=== PATIENT | female | born 2000 | race Caucasian/White ===

== ENCOUNTER 2023-01-30 08:02 | Emergency (ER) | payer OTHER ==
[2023-01-30] MEDS ORDERED: Sodium Chloride 0.9% 2.5 ML Syringe FLUSH PRN (08:35)
[2023-01-30] MEDS ORDERED: Sodium Chloride 0.9% 10 ML Syringe FLUSH PRN (08:35)
[2023-01-30] MEDS ORDERED: Ondansetron 4 MG/2 ML SDV IVPUSH ONE (08:36)
[2023-01-30] MEDS ORDERED: Sodium Chloride 0.9% 1,000 ML IV ONE ×2 (08:36→10:47)
[2023-01-30 09:11] LABS: BASOPHILS PERCENT AUTO 0.1 % (0.0-1.5); EOSINOPHILS PERCENT AUTO 0.1 % (0.0-7.0); HEMATOCRIT 41.3 % (36.0-46.0); LYMPHOCYTES ABSOLUTE AUTO 0.4 K/uL (0.6-2.4); LYMPHOCYTES PERCENT AUTO 3.1 % (16.0-40.0); MEAN CORPUSCULAR HEMOGLOBIN 29.7 pg (27.0-32.0); MEAN CORPUSCULAR HGB CONC 33.9 g/dL (31.0-37.0); MEAN CORPUSCULAR VOLUME 87.5 fL (80.0-98.0); MONOCYTES ABSOLUTE AUTO 0.6 K/uL (0.0-0.8); MONOCYTES PERCENT AUTO 4.9 % (0.0-15.0); NEUTROPHILS ABSOLUTE AUTO 10.8 K/uL (1.4-5.7); NEUTROPHILS PERCENT AUTO 91.8 % (48.0-80.0); NRBC ABSOLUTE 0 K/uL; PLATELET COUNT,PLT 207 K/uL (150-400); RED BLOOD CELL COUNT 4.72 M/uL (4.30-5.90); WHITE BLOOD CELL COUNT,WBC 11.75 K/uL (4.0-11.0)
[2023-01-30 09:49] LABS: A/G RATIO 1.1 (0.9-1.6); ALBUMIN 4.1 g/dL (3.4-5.0); CALCIUM 8.9 mg/dL (8.5-10.1); CARBON DIOXIDE,CO2 25.7 mmol/L (21.0-32.0); EST CRCL DRUG DOSING (CG) 74.23 mL/min; POTASSIUM,K 4.5 mmol/L (3.5-5.1)
[2023-01-30 11:13] LABS: CORONAVIRUS COVID-19 NAA NEGATIVE (NEGATIVE); INFLUENZA A NAA NEGATIVE (NEGATIVE); INFLUENZA B NAA NEGATIVE (NEGATIVE); RESPIRATORY SYNCYTIAL VIR NAA NEGATIVE (NEGATIVE)
== END 2023-01-30 13:05 | disposition home or self-care (01) ==
LOC: MW.ED 08:02
DX: R11.2 Nausea with vomiting, unspecified (principal); R19.7 Diarrhea, unspecified; Z20.822 Contact with and (suspected) exposure to COVID-19
CPT/HCPCS: 0241U; 36415; 80053; 81025; 83690; 84703; 85025; 96361; 96374; 99284; J2405; J7030; 99283